=== PATIENT | male | born 1950 | race Caucasian/White ===

== ENCOUNTER 2022-07-06 16:13 | Emergency (ER) | payer MEDICARE, SELFPAY ==
--- NOTE | ~2022-07-06 | CT_ITS ---
Non-contrast Head CT History: Vertigo, dizziness Technique: Axial non-contrast imaging of the brain was performed. Dose reduction technique was used on this scan by utilizing automated exposure control and iterative reconstruction technique. The dose -length product (DLP) was 681.00 mGy-cm. Findings: There is no evidence of intracranial hemorrhage, mass lesion, or acute infarct. Brain par enchyma appears normal. The ventricles and subarachnoid spaces are normal in size. The calvarium ap pears normal. There is mild bilateral ethmoid sinus disease. The remaining visualized paranasal sinus es are clear. Impression: No intracranial abnormality seen. Mild ethmoid sinus disease. Reviewed, dictated and finalized at location . [employer] Impression: No intracranial abnormality seen. Mild ethmoid sinus disease.
[2022-07-06 16:58] VITALS: BP 122/70; PULSE 74; RESP 16; TEMP 36.9; O2SAT 97
--- NOTE | 2022-07-06 17:03 | ECG_ITS ---
Measurements Intervals [place] Rate: 107 P: 57 [place]: 173 QRS: 0 QRSD: 78 T: 46 QT: 365 QTc: 489 Interpretive Statements SINUS TACHYCARDIA VENTRICULAR TRIGEMINY ABNORMAL ECG NO PREVIOUS ECG AVAILABLE FOR COMPARISON Electronically Signed On 07-06-2022 20:16:26 HR OPERATIONS ADVISOR by Topher Davies D.O.
[2022-07-06 17:54] VITALS: BP 132/78; PULSE 71; RESP 16; O2SAT 97
[2022-07-06 22:00] VITALS: BP 128/78; PULSE 78; RESP 16; TEMP 36.9; O2SAT 95
--- NOTE | 2022-07-06 22:57 | PC.NURSE ---
Herminia, ED PA at bedside to assess pt.
--- NOTE | 2022-07-06 23:19 | ED.GENADULT ---
HPI - General Adult General Chief complaint: Recheck/Abnormal Lab/Rx Stated complaint: high blood pressure Time Seen by Provider: 07/06/22 22:33 Source: patient and family Mode of arrival: ambulatory Limitations: no limitations History of Present Illness HPI narrative: Patient is a 71-year-old male who presents to the ED with report of dizziness. Patient reports he woke up at 1am and felt fine. He then woke again at 3am with dizziness. He describes the dizziness as though he feels motion sick and unsteady. He states he had to hold onto things to avoid falling. He did not fall. He has never had similar sx's. He states the dizziness is worse with sitting upright or trying to move. If he lays still the dizziness is manageable. He did experience nausea and one episode of vomiting with the dizziness. He otherwise denies any vision changes, headache, abdominal pain, CP, SOB, weakness, slurred speech, aphasia, numbness. Related Data Home Medications Medication Instructions Recorded Confirmed metoprolol succinate 50 mg 50 mg PO DAILY 06/03/22 06/03/22 tablet,extended release 24 hr simvastatin 40 mg tablet 40 mg PO DAILY 06/03/22 06/03/22 Allergies Allergy/AdvReac Type Severity Reaction Status Date / Time No Known Allergies Allergy Unverified 06/03/22 10:47 Review of Systems Review of Systems: CONSTITUTIONAL: Denies fever, chills, or sweats. EYES: Denies visual changes. CARDIOVASCULAR: Denies chest pain. RESPIRATORY: Denies dyspnea. GASTROINTESTINAL: See HPI. NEUROLOGIC: See HPI. All systems reviewed & are unremarkable except as noted in HPI and below PMFSH Past Medical History Medical History HLD (hyperlipidemia) Hypertension Surgical History Surgical History (Updated 07/07/22 @ 00:02 by Herminia Bright PA-C) No pertinent past surgical history Family History Family History Father Cancer Mother Diabetes mellitus Sibling Alcoholism Cancer Depression Social History Social History Smoking status: Never smoker Alcohol intake: current Substance use: never Lack of Transportation: No Lack of Food: Never True Current Housing: I Have Housing Concerned About Future Housing: No Difficulty Paying Gas/Electric Bills: No Difficulty Paying for Meds: No Currently Unemployed: No Education: Bachelor's Degree Difficulty w/ Childcare or Family Care: No Exam Narrative: GENERAL: Well appearing, well-nourished, non-toxic, in no acute distress. HEAD: Normocephalic, atraumatic. EYES: PERRL/EOMI, conjunctivae clear bilaterally. Mild fatiguable nystagmus with left and right gaze. EARS: TMS clear, with good light reflex. No erythema or bulging. Some cerumen in R ear, but able to visualize TM. No impaction. THROAT: Pharynx clear, no exudate. MMs moist. NECK: Supple. No adenopathy, no masses. RESPIRATORY: Airway patent, respirations nonlabored. Clear to auscultation bilaterally, no rales, rhonchi, wheezing. CARDIOVASCULAR: Regular rate and rhythm without murmurs, rubs, or gallops. Peripheral pulses 2+ and equal bilaterally. ABDOMINAL: Soft, nontender, nondistended, no hepatosplenomegaly. Normoactive BS. MUSCULOSKELETAL: Moves all extremities. Strength/ROM intact without gross deformities. SKIN: Warm, dry, normal color. No rashes. NEURO: A&O X3. Speech clear. Follows commands. CN II-XII intact. Sensation grossly intact. No ataxic movements. Strength 5/5 in upper and lower extremities bilaterally. Bgmb-xw-wrxe and ektoqn-jc-czrn testing intact bilaterally. No pronator drift. Equal lab animal technologist strength bilaterally. Dizziness elicited with sitting upright in bed. PSYCHIATRIC: Appropriate mood and affect. Normal interaction. Course Vital Signs Vital signs: Vital Signs Temperature 98.4 F 07/06/22 16:58 Pulse Rate 74
[2022-07-07 00:07] LABS: Basophils Absolute Auto 0.1 K/mm3 (0.0-0.1); Basophils Percent Auto 0.7 % (0.2-1.2); Eosinophils Absolute Auto 0.1 K/mm3 (0-0.3); Eosinophils Percent Auto 1.1 % (0-4.4); Hematocrit 46.6 % (42.0-52.0); Hemoglobin 15.6 g/dL (14.0-18.0); Immature Granulocyte Absolute 0.02 K/mm3 (0.00-0.031); Immature Granulocyte Percent A 0.2 % (0-0.5); Lymphocytes Absolute Auto 1.94 K/mm3 (0.9-3.2); Lymphocytes Percent Auto 23.4 % (18.3-44.2); Mean Corpuscular HGB Conc 33.5 g/dl (32-36); Mean Corpuscular Hemoglobin 34.1 pg (26-34); Mean Platelet Volume 9.6 fl (7.4-10.4); Monocytes Absolute Auto 0.7 K/mm3 (0.1-0.6); Monocytes Percent Auto 8.6 % (2.6-8.5); Neutrophils Absolute Auto 5.5 K/mm3 (1.3-6.7); Platelet Count Result 151 k/mm3 (150-375); Red Blood Count 4.57 M/mm3 (4.6-6.20); Red Cell Distribution Width 12.5 % (11.5-14.5); White Blood Count 8.3 K/mm3 (4.5-10.0)
[2022-07-07] MEDS: SODIUM CHLORIDE 0.9% IV 1,000 ML 999 ML IV CONT (00:10)
[2022-07-07] MEDS: ONDANSETRON INJ 4 MG/2 ML VIAL IV PUSH (00:10)
[2022-07-07] MEDS: MECLIZINE HCL 25 MG TABLET PO (00:10)
[2022-07-07 00:13] LABS: INR 1.1; Prothrombin Time 13.9 Seconds (11.1-14.7)
[2022-07-07 00:14] LABS: Partial Thromboplastin Time 28.4 SECONDS (22.3-36.8)
[2022-07-07 00:26] LABS: Alanine Aminotransferase 32 U/L (6-50); Albumin Level 4.2 g/dL (3.5-5.1); Alkaline Phosphatase 62 U/L (38-126); Anion Gap 6 mmol/L (8-16); Aspartate Amino Transferase 49 U/L (17-59); Bilirubin,Total 1.2 mg/dL (0.2-1.3); Blood Urea Nitrogen 15 mg/dL (9-20); Calcium 9.3 mg/dL (8.4-10.2); Carbon Dioxide 26 mmol/L (22-30); Chloride 103 mmol/L (98-107); Estimated CRCL calculation 59 ml/min; Estimated Glomerular Filt Rate > 60; Glucose 114 mg/dL (65-110); Potassium 4.1 mmol/L (3.4-5.0); Sodium 135 mmol/L (137-145)
[2022-07-07 00:37] LABS: Troponin I < 0.012 ng/mL (0.000-0.034)
--- NOTE | 2022-07-07 01:11 | PC.NURSE ---
Patient ambulatory with provider out into the hallway and around the nurses station. Patient tolerated it well.
--- NOTE | 2022-07-07 01:24 | PC.NURSE ---
Patient here with c/o dizziness.
--- NOTE | 2022-07-07 01:41 | PC.NURSE ---
Patient refused orthostatic vital signs.
[2022-07-07 01:42] VITALS: PULSE 72; RESP 16; O2SAT 98
== END 2022-07-07 01:44 | disposition home or self-care (01) ==
PROVIDERS: Emergency Provider Physician Assistant; PCP Internal Medicine
DX: R42 Dizziness and giddiness (principal); E78.5 Hyperlipidemia, unspecified; I10 Essential (primary) hypertension; R00.0 Tachycardia, unspecified; R00.8 Other abnormalities of heart beat
CPT/HCPCS: 36415; 70450; 80053; 84484; 85025; 85610; 85730; 93005; 96361; 96374; 99284; A9270; J2405; J7030

== ENCOUNTER 2024-11-13 07:36 | Outpatient (CLI) | payer MEDICARE, SELFPAY ==
--- NOTE | ~2024-11-13 | MR_ITS ---
MRI of the brain Clinical History: Slurred speech Technique: Axial and sagittal T1-weighted images were acquired. These were followed by axial T2-weigh joshua, diffusion weighted, gradient, and FLAIR images. Findings: There is a 1.8 x 1.5 cm masslike lesion in the left frontal lobe in the subcortical white m atter region, hyperintense both T1-weighted and T2-weighted images, with minimal perilesional edema. Findings are most compatible with subacute hemorrhage/hematoma. No other significant signal abnormali ty seen in the brain parenchyma. Ventricles and subarachnoid spaces are mildly dilated. Orbits are unremarkable. There is mild bilater al maxillary sinus disease. There is bilateral ethmoid sinus disease. Remaining paranasal sinuses and mastoid air cells are clear. Major intracranial flow voids are intact. Sagittal midline structures are intact. IMPRESSION: 1.8 x 1.5 cm probable subacute hemorrhage/hematoma in the left frontal lobe in the subcortical white matter. There is minimal perilesional edema. Short-term follow-up exam recommended in one month. Foll ow-up postcontrast imaging also advised to better assess for underlying enhancing lesion, especially once the intrinsic T1 hyperintense hemorrhage has resolved/improved. Reviewed, dictated and finalized at location . IMPRESSION: 1.8 x 1.5 cm probable subacute hemorrhage/hematoma in the left frontal lobe in the subcortical white matter. There is minimal perilesional edema. Short-term f ollow-up exam recommended in one month. Follow-up postcontrast imaging also adv ised to better assess for underlying enhancing lesion, especially once the intr insic T1 hyperintense hemorrhage has resolved/improved.
== END 2024-11-13 07:37 | disposition home or self-care (01) ==
LOC: MICIMG 07:38
PROVIDERS: PCP Internal Medicine; Visit Provider Internal Medicine
DX: G93.6 Cerebral edema (principal)
CPT/HCPCS: 70551

== ENCOUNTER 2024-12-10 08:39 | Outpatient (CLI) | payer MEDICARE, SELFPAY ==
--- NOTE | ~2024-12-10 | MR_ITS ---
MRI of the brain Clinical History: Slurred speech, follow-up left cerebral lesion COMPARISON: 11/13/2024 Technique: Axial flair, T1-weighted, diffusion imaging was performed. Following intravenous administr ation of 19 cc MultiHance gadolinium, T1-weighted fat-sat imaging was performed in the axial, coronal , and sagittal planes. . Findings: Again identified is a 1.5 cm round lesion in the subcortical region of the left frontal lob e, with attention to T1 hyperintensity and avid T2 hyperintensity. Lesion is circumscribed, without p erilesional edema. No appreciable close contrast enhancement identified. Intrinsic T1 hyperintensity present. No other lesion identified in the remainder of the brain. IMPRESSION: No abnormal enhancement identified with the T1 hyperintense, T2 hyperintense lesion in the left front al lobe. This is again most compatible with subacute hemorrhage/hematoma. Follow-up exam in 3 months recommended to reassess. Reviewed, dictated and finalized at [facility]. IMPRESSION: No abnormal enhancement identified with the T1 hyperintense, T2 hyperintense le radha in the left frontal lobe. This is again most compatible with subacute hemo rrhage/hematoma. Follow-up exam in 3 months recommended to reassess.
--- OUTSIDE RECORDS SUMMARY | 2024-12-10 09:03 | XMS_ITS | Clinical Summary ---
Author Organization [facility] Address [address] [place] [address] Care Team Providers Care Rcis Name Role Phone Unavailable Primary Care Provider Unavailabl e Source Comments [facility],non-owned Affiliates and Associated Physician Practices is amultiple site organization consisting of ambulatory clinics and hospital sitesin [place], [place], [place] and [place]. This disclosure is being madepursuant to the Care Everywhere program and may not contain all information available regarding this patient. Last updated 18.[facility] Immunizations Immunization Administration Dates Next Due INFLUENZA VACCINE, HIGH-DOSE , QUADR. 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 Gender Identity Not on file Sexual Orientation Not on file Plan of Treatment Health Maintenance Due Date Last Done Comments COLOGUARD (AGES 45-75) - COL ON CA SCREENING 1949 COLON MONITORING 1949 COLONOSCOPY - COLON CA SCREENING 1949 CT COLONOGRAPHY - COLON CA SCREENING 1949 Colorectal Cancer Screening 1949 FIT - COLON CA SCREENING 1949 FLEX SIG - COLON CA SCREENING 1949 LIPID TESTING 1949 HEPATITIS C SCREENING 07/06/1967 DTAP/TDAP/TD VACCINES (1 - Tdap) 1968 PNEUMOCOCCAL VACCINE 50+ (1 of 1 - PCV) 1999 ZOSTER VACCINE (1 of 2) 1999 COVID-19 VACCINE (1 - 2023-2 5 season) 2024 DEPRESSION SCREENING 07/04/2024 Respiratory Syncytial Virus (RSV) Vaccine Pt: or over 60 yrs (1 - 1-dose 75+ series) 2024 INFLUENZA VACCINE (Season Ended) 2025 05/13/20 19 HEPATITIS B VACCINE Aged Out No longe r eligible based on patient's age to complete this topic HIB VACCINE Aged Out No longer eligi ble based on patient's age to complete this topic HPV VACCINE Aged Out No longer eligi ble based on patient's age to complete this topic MENINGOCOCCAL (Group B) VACC INE SHARED DECISION-MAKING Aged Out No longer eligibl e based on patient's age to complete this topic MENINGOCOCCAL GROUPS A/C/Y/W VACCINE Aged Out No longer eligible b ased on patient's age to complete this topic Insurance [employer]
--- OUTSIDE RECORDS SUMMARY | 2024-12-10 09:03 | XMS_ITS | Data Portability ---
Author Organization [place] - [facility], Main Office Address [address] [place] [address] Assessment Encounter Date Assessment Date Assessment LastModified by Organization Details LastModified Time 11/09/2022 11/09/2022 Continue current therapy he will see me back in 6 months blood work has been ordered Hypertension metoprolol. Dyslipidemia simvastatin spinal stenosis exam and symptoms stable [email or web address] Not available 12/12/2022 16:14:55 06/02/2023 06/02/2023 Medicines refilled follow-up 4 months [email or web address] Not available 07/01/2023 13:26:03 Plan of Treatment Reminders Order Date Submit Date Provider Last Modified By Organization Details Last Modified Time Details Appointments None recorded. Lab CBC w/ auto diff 2022 023 [email or web address] Not available 3 10:02:37 lipid panel, serum 2022 023 MARIO Not available 3 18:56:03 CMP, serum or plasma 2022 023 MARIO Not available 3 18:55:59 Referral None recorded. Procedures None recorded. Surgeries None recorded. Imaging None recorded. Medication Orders simvastatin 40 mg tablet 2022 023 [id number], [address] [place], [address], 3 17:58:57 metoprolol succinate ER 50 mg tablet,exte nded release 24 hr 2022 023 [email or web address] [id number] In [facility], [address] , [place], [address], 17:58:57 Patient TargetsNo targets recorded. Patient Instructions Encounter Date Encounter Id Patient Instructions Last Modified By Organization Details Last Modified Time 06/02/2023 [id number] dementia rating scale-2* [email or web address] Not available 06/02/2023 17:58:57 alcohol misuse* [email or web address] Not available 06/02/2023 17:58:57 depression screening* [email or web address] Not available 06/02/2023 17:58:57 multi-dimensiona l health assessment questionnaire* [email or web address] Not available 06/02/2023 17:58:57 Personalized Hea lth Plan and Screening Recommendations Advance Directives - Do you have one? Yes Advance Directives - Do we have your advance directive on file in your health record? Primary Prevention/Interven tion (prevents or decreases the chance of common diseases from occurring) Smoking Risk: Non Smoker Alcohol Misuse Screening: Negative Weight: Overweight try to lose 10% of your body weight Physical activity: Appropriate physical activity Nutrition: Average Fall Risk (screened today): Low Vaccines Pneumococcal: No further needed Influenza: Ordered Recommended today Recommended today, but you have declined Your next one in the fall of this year Your next one in the fall of this 2023 Chronic Disease Risks Stroke: Intermediate Risk Active diagnosis, Continue current treatment plan Heart Attack: Intermediate Risk Active diagnosis, Continue current treatment plan Clogging of the Arteries: Intermediate Risk Active diagnosis, Continue current treatment plan Diabetes: Low Risk Active diagnosis, Continue current treatment plan Secondary Prevention/Interven tion (detects treatable diseases before they may cause symptoms, disability, or ) Colon Cancer Screening: Colonoscopy In: Ordered Recomme nded Recommended today, but you have declined No screening necessary next 2026 Date Screening Last Performed: Eye Disease Screening: No Eye exam necessary Dementia Risk: Depression Screening: Negative Active diagnosis, Continue current treatment plan Prostate Cancer Screening: Your next PSA in: No PSA screening necessary Your next PSA in: 2023 your next digital rectal exam in: No digital rectal exam screening necessary your next digital rectal exam in: 2023 [email or web address] Not available 06/03/2023 19:48:26 Reason for Referral None Reported. Results Created Date Observation Date Name Description Value Unit Range Abnormal Flag Note LastModifiedBy Organization Detail LastModifiedTime 12/02/19 22 12/02/2021 FOLAT E, SERUM /PLAS MA folate 6.29 NG/mL 2.76-2 0.0 Not Available [facility] (Lab) [address] [place], [address], 12/02/2021 18:18:22 12/02/19 22 12/02/2021 VITAM IN B12 (AUTUMN HILARIA ) vb12 349 pg/mL 239-93 1 Not Available [facility] (Lab) [address] [place], [address], 12/02/2021 18:18:20 12/02/19 22 12/02/2021 RPR SCREE N RPR non-re active nonrea ctive Not Available [facility] (Lab) [address] [place], [address], 12/02/2021 13:50:33 12/02/19 22 12/01/2021 PSA SCREE N PSA medicare screen 0.76 NG/mL 0.00-4 .00 Not Available [facility] (Lab) [address] [place], [address], 12/01/2021 20:00:13 12/02/19 22 12/01/2021 TSH thyroid-stim ulating hormone 5.510 uIU/m L 0.465- 4.680 high Not Available [facility] (Lab) [address] [place], [address], 12/01/2021 20:00:11 12/02/19 22 12/01/2021 T3 FREE free T3 3.1 pg/mL 2.77-5 .27 Not Available [facility] (Lab) [address] [place], [address], 12/01/2021 19:44:12 12/02/19 22 12/01/2021 T4 FREE free T4 1.29 NG/dL 0.78-2 .19 Not Available [facility] (Lab) [address] [place], [address], 12/01/2021 19:44:11 12/02/19 22 12/01/2021 LIPID PANEL cholesterol 169 mg/dL 140-19 9 NIH ANNE NSUS RECOM MENDA TION FOR MAHENDRA STERO L: ADULT CHILD LOW RISK: <200 <170 BORDE RLINE : <200- 239 ----- HIGH RISK: >240 >200 Not Available [facility] (Lab) [address] [place], [address], 12/01/2021 19:33:25 12/02/19 22 12/01/2021 LIPID PANEL triglyceride s 91 mg/dL 0-150 NIH ANNE NSUS REPOR T RECOM MENDA TION FOR TRIGL YCERI RAQUEL: ADULT CHILD LOW RISK: <150 ----- BODER LINE: 150-1 99 ----- HIGH RISK: >200 ----- Not Available [facility] (Lab) [address] [place], [address], 12/01/2021 19:33:25 12/02/19 22 12/01/2021 LIPID PANEL HDL cholesterol 67 mg/dL 40- Not Available [facility] (Lab) [address] [place], [address], 12/01/2021 19:33:25 12/02/19 22 12/01/2021 LIPID PANEL LDL cholesterol, calculated 84 mg/dL 0-130 NIH ANNE NSUS REPOR T RECOM MENDA TIONS FOR LDL: ADULT CHILD LOW RISK <130 <110 (OPTI MAL LDL) <100 ----- BORDE RLINE : 130-1 59 ----- HIGH RISK: >160 >130 A TRIGL YCERI DE RESUL T >400 INVAL IDATE S THE CALCU LATIO N FOR LDL FRACT IONAT ION - THE LDL RESUL T WILL NOT BE REPOR GUALBERTO. Not Available [facility] (Lab) [address] [place], [address], 12/01/2021 19:33:25 12/02/19 22 12/01/2021 COMPR EHENS SHERRY METAB OLIC PANEL sodium 134 mmol/ L 137-14 5 low Not Available [facility] (Lab) [address] [place], [address], 12/01/2021 19:33:20 12/02/19 22 12/01/2021 COMPR EHENS SHERRY METAB OLIC PANEL potassium 4.6 mmol/ L 3.5-5. 1 Not Available [facility] (Lab) [address] [place], [address], 12/01/2021 19:33:20 12/02/19 22 12/01/2021 COMPR EHENS SHERRY METAB OLIC PANEL chloride 98 mmol/ L 98-107 Not Available [facility] (Lab) [address] [place], [address], 12/01/2021 19:33:20 12/02/19 22 12/01/2021 COMPR EHENS SHERRY METAB OLIC PANEL carbon dioxide 25 mmol/ L 22-30 Not Available [facility] (Lab) [address] [place], [address], 12/01/2021 19:33:20 12/02/19 22 12/01/2021 COMPR EHENS SHERRY METAB OLIC PANEL anion gap 15.6 mmol/ L 14-22 Not Available [facility] (Lab) [address] [place], [address], 12/01/2021 19:33:20 12/02/19 22 12/01/2021 COMPR EHENS SHERRY METAB OLIC PANEL glucose 103 mg/dL 70-99 high Not Available [facility] (Lab) [address] [place], [address], 12/01/2021 19:33:20 12/02/19 22 12/01/2021 COMPR EHENS SHERRY METAB OLIC PANEL BUN 12 mg/dL 8-19 Not Available [facility] (Lab) [address] [place], [address], 12/01/2021 19:33:20 12/02/19 22 12/01/2021 COMPR EHENS SHERRY METAB OLIC PANEL creatinine 1.10 mg/dL 0.66-1 .25 Not Available [facility] (Lab) [address] [place], [address], 12/01/2021 19:33:20 12/02/19 22 12/01/2021 COMPR EHENS SHERRY METAB OLIC PANEL GFR >60 Refer ence Range : [place] ge GFR Healt hy Adult : >60 mL/mi n/1.7 3 m2 Chron ic Kidne y Disea se: 15-60 mL/mi n/1.7 3 m2 Kidne y Failu re: <15/m L/min /1.73 m2 www.n iddk. nih.g ov The MDRD study equat ion has not been valid ated in child massimo <18 years of age; pregn ant women ; the elder ly >85 years of age; or in some racia l or ethni c subgr oups, such as Hispa nics. Outsi de the valid ated hilton eters , estim ated GFR is less accur ate, requi ring clini john judgm ent on a case- by-ca se basis . Clini john inter preta tion for other races and ages must be made by the clini nyla. The MDRD study equat ion has not been valid ated for the evalu ation of serum creat inine relat ed to nutri tania l statu s or medic ation usage . For perso ns <18 years of age, a pedia tric GFR calcu lator is avail able on the F websi te: https ://susu w.linda flor.o rg/pr ofess ional s/kdo qi/gf r_cal culat or Not Available [facility] (Lab) [address] [place], [address], 12/01/2021 19:33:20 12/02/19 22 12/01/2021 COMPR EHENS SHERRY METAB OLIC PANEL alkaline phosphatase 117 U/L 38-126 Not Available [facility] (Lab) [address] [facility] [place], [address], 12/01/2021 19:33:20 12/02/19 22 12/01/2021 COMPR EHENS SHERRY METAB OLIC PANEL alanine aminotransfe rase 137 U/L 0-50 high Not Available [facility] (Lab) [address] [place], [address], 12/01/2021 19:33:20 12/02/19 22 12/01/2021 COMPR EHENS SHERRY METAB OLIC PANEL aspartate aminotransfe rase 221 U/L 15-46 high Not Available [facility] (Lab) [address] [place], [address], 12/01/2021 19:33:20 12/02/19 22 12/01/2021 COMPR EHENS SHERRY METAB OLIC PANEL bilirubin, total 0.70 mg/dL 0.20-1 .30 Not Available [facility] (Lab) [address] [place], [address], 12/01/2021 19:33:20 12/02/19 22 12/01/2021 COMPR EHENS SHERRY METAB OLIC PANEL calcium 9.2 mg/dL 8.4-10 .2 Not Available [facility] (Lab) [address] [place], [address], 12/01/2021 19:33:20 12/02/19 22 12/01/2021 COMPR EHENS SHERRY METAB OLIC PANEL total protein 7.7 g/dL 6.3-8. 2 Not Available [facility] (Lab) [address] [place], [address], 12/01/2021 19:33:20 12/02/19 22 12/01/2021 COMPR EHENS SHERRY METAB OLIC PANEL albumin 4.3 g/dL 3.0-4. 4 Not Available [facility] (Lab) [address] [place], [address], 12/01/2021 19:33:20 12/02/19 22 12/01/2021 COMPR EHENS SHERRY METAB OLIC PANEL globulin 3.4 g/dL 2.6-4. 2 Not Available [facility] (Lab) [address] [place], [address], 12/01/2021 19:33:20 12/02/19 22 12/01/2021 COMPR EHENS SHERRY METAB OLIC PANEL A/G ratio 1.3 ratio 1.0-2. 0 Not Available [facility] (Lab) [address] [place], [address], 12/01/2021 19:33:20 12/02/19 22 12/01/2021 URINA LYSIS /IRIS W/O MICRO color light- yellow Not Available [facility] (Lab) [address] [place], [address], 12/01/2021 19:23:04 12/02/19 22 12/01/2021 URINA LYSIS /IRIS W/O MICRO appear clear Not Available [facility] (Lab) [address] [place], [address], 12/01/2021 19:23:04 12/02/19 22 12/01/2021 URINA LYSIS /IRIS W/O MICRO specific gravity 1.011 1.001- 1.030 Not Available [facility] (Lab) [address] [place], [address], 12/01/2021 19:23:04 12/02/19 22 12/01/2021 URINA LYSIS /IRIS W/O MICRO pH 5.5 pH_un its 5.0-9. 0 Not Available [facility] (Lab) [address] [place], [address], 12/01/2021 19:23:04 12/02/19 22 12/01/2021 URINA LYSIS /IRIS W/O MICRO leukocytes negati ve melania/u L negati ve- Not Available [facility] (Lab) [address] [place], [address], 12/01/2021 19:23:04 12/02/19 22 12/01/2021 URINA LYSIS /IRIS W/O MICRO nitrite negati ve negati ve- Not Available [facility] (Lab) [address] [place], [address], 12/01/2021 19:23:04 12/02/19 22 12/01/2021 URINA LYSIS /IRIS W/O MICRO protein 10 mg/dL negati ve- abnormal Not Available [facility] (Lab) [address] [place], [address], 12/01/2021 19:23:04 12/02/19 22 12/01/2021 URINA LYSIS /IRIS W/O MICRO glucose normal mg/dL normal - Not Available [facility] (Lab) [address] [place], [address], 12/01/2021 19:23:04 12/02/19 22 12/01/2021 URINA LYSIS /IRIS W/O MICRO ketones negati ve mg/dL negati ve- Not Available [facility] (Lab) [address] [place], [address], 12/01/2021 19:23:04 12/02/19 22 12/01/2021 URINA LYSIS /IRIS W/O MICRO urobilinogen normal mg/dL normal - Not Available [facility] (Lab) [address] [place], [address], 12/01/2021 19:23:04 12/02/19 22 12/01/2021 URINA LYSIS /IRIS W/O MICRO bilirubin negati ve mg/dL negati ve- Not Available [facility] (Lab) [address] [place], [address], 12/01/2021 19:23:04 12/02/19 22 12/01/2021 URINA LYSIS /IRIS W/O MICRO blood negati ve mg/dL negati ve- abnormal Not Available [facility] (Lab) [address] [place], [address], 12/01/2021 19:23:04 12/02/19 22 12/01/2021 CBC/C OMPLE TE BLD COUNT W/DIF F white blood cells 8.7 x10'3 /uL 4.2-10 .8 Not Available [facility] (Lab) [address] [place], [address], 12/01/2021 19:22:28 12/02/19 22 12/01/2021 CBC/C OMPLE TE BLD COUNT W/DIF F red blood cells 3.86 x10'6 /uL 4.10-5 .80 low Not Available [facility] (Lab) [address] [facility] [place], [address], 12/01/2021 19:22:28 12/02/19 22 12/01/2021 CBC/C OMPLE TE BLD COUNT W/DIF F hemoglobin 14.4 g/dL 13.2-1 7.0 Not Available [facility] (Lab) [address] [place], [address], 12/01/2021 19:22:28 12/02/19 22 12/01/2021 CBC/C OMPLE TE BLD COUNT W/DIF F hematocrit 42.5 % 39.3-5 0.0 Not Available [facility] (Lab) [address] [place], [address], 12/01/2021 19:22:28 12/02/19 22 12/01/2021 CBC/C OMPLE TE BLD COUNT W/DIF F mean red cell volume 110.1 fL 80.0-9 7.0 high Not Available [facility] (Lab) [address] [place], [address], 12/01/2021 19:22:28 12/02/19 22 12/01/2021 CBC/C OMPLE TE BLD COUNT W/DIF F mean red cell hemoglobin 37.3 pg 27.0-3 3.0 high Not Available [facility] (Lab) [address] [place], [address], 12/01/2021 19:22:28 12/02/19 22 12/01/2021 CBC/C OMPLE TE BLD COUNT W/DIF F mean RBC HGB concentratio n 33.9 g/dL 31.0-3 6.0 Not Available [facility] (Lab) [address] [place], [address], 12/01/2021 19:22:28 12/02/19 22 12/01/2021 CBC/C OMPLE TE BLD COUNT W/DIF F red cell distribution width 12.7 % 11.8-1 5.5 Not Available [facility] (Lab) [address] [facility] [place], [address], 12/01/2021 19:22:28 12/02/19 22 12/01/2021 CBC/C OMPLE TE BLD COUNT W/DIF F platelets 170 x10'3 /uL 150-40 0 Not Available [facility] (Lab) [address] [place], [address], 12/01/2021 19:22:28 12/02/19 22 12/01/2021 CBC/C OMPLE TE BLD COUNT W/DIF F mean platelet volume 9.6 fL 9.0-12 .4 Not Available [facility] (Lab) [address] [place], [address], 12/01/2021 19:22:28 12/02/19 22 12/01/2021 CBC/C OMPLE TE BLD COUNT W/DIF F neutrophils 72.3 % 39.0-7 2.0 high Not Available [facility] (Lab) [address] [place], [address], 12/01/2021 19:22:28 12/02/19 22 12/01/2021 CBC/C OMPLE TE BLD COUNT W/DIF F lymphocytes 17.4 % 16.0-4 7.0 Not Available [facility] (Lab) [address] [place], [address], 12/01/2021 19:22:28 12/02/19 22 12/01/2021 CBC/C OMPLE TE BLD COUNT W/DIF F monocytes 8.7 % 5.0-12 .0 Not Available [facility] (Lab) [address] [place], [address], 12/01/2021 19:22:28 12/02/19 22 12/01/2021 CBC/C OMPLE TE BLD COUNT W/DIF F eosinophils 0.8 % 1.0-7. 0 low Not Available [facility] (Lab) [address] [place], [address], 12/01/2021 19:22:28 12/02/19 22 12/01/2021 CBC/C OMPLE TE BLD COUNT W/DIF F basophils 0.5 % 0.0-2. 0 Not Available [facility] (Lab) [address] [place], [address], 12/01/2021 19:22:28 12/02/19 22 12/01/2021 CBC/C OMPLE TE BLD COUNT W/DIF F immature granulocytes 0.3 % 0.00-0 .50 Not Available [facility] (Lab) [address] [place], [address], 12/01/2021 19:22:28 12/02/19 22 12/01/2021 CBC/C OMPLE TE BLD COUNT W/DIF F neutrophils, absolute count 6.28 x10'3 /uL 1.5-8. 0 Not Available [facility] (Lab) [address] [place], [address], 12/01/2021 19:22:28 12/02/19 22 12/01/2021 CBC/C OMPLE TE BLD COUNT W/DIF F lymphocytes, absolute count 1.51 x10'3 /uL 1.07-3 .43 Not Available [facility] (Lab) [address] [place], [address], 12/01/2021 19:22:28 12/02/19 22 12/01/2021 CBC/C OMPLE TE BLD COUNT W/DIF F monocytes, absolute count 0.76 x10'3 /uL 0.29-0 .99 Not Available [facility] (Lab) [address] [place], [address], 12/01/2021 19:22:28 12/02/19 22 12/01/2021 CBC/C OMPLE TE BLD COUNT W/DIF F eosinophils, absolute count 0.07 x10'3 /uL 0.02-0 .53 Not Available [facility] (Lab) [address] [place], [address], 12/01/2021 19:22:28 12/02/19 22 12/01/2021 CBC/C OMPLE TE BLD COUNT W/DIF F basophils, absolute count 0.04 x10'3 /uL 0.01-0 .08 Not Available [facility] (Lab) [address] [place], [address], 12/01/2021 19:22:28 12/02/19 22 12/01/2021 CBC/C OMPLE TE BLD COUNT W/DIF F immature granulocytes ,absolute 0.03 x10'3 /uL 0.00-0 .05 Not Available [facility] (Lab) [address] [place], [address], 12/01/2021 19:22:28 12/02/19 22 12/01/2021 CBC/C OMPLE TE BLD COUNT W/DIF F nucleated red blood cells 0.0 % -0 Not Available [facility] (Lab) [address] [place], [address], 12/01/2021 19:22:28 12/02/19 22 12/01/2021 CBC/C OMPLE TE BLD COUNT W/DIF F NRBC# 0.00 x10'3 /uL Not Available [facility] (Lab) [address] [place], [address], 12/01/2021 19:22:28 02/02/20 22 02/01/2022 TSH thyroid-stim ulating hormone 3.020 uIU/m L 0.465- 4.680 Not Available [facility] (Lab) [address] [place], [address], 02/01/2022 13:37:10 02/02/20 22 02/01/2022 T3 FREE free T3 2.6 pg/mL 2.77-5 .27 low Not Available [facility] (Lab) [address] [place], [address], 02/01/2022 13:22:41 02/02/20 22 02/01/2022 T4 FREE free T4 1.02 NG/dL 0.78-2 .19 Not Available [facility] (Lab) [address] [place], [address], 02/01/2022 13:22:33 02/02/20 22 02/01/2022 COMPR EHENS SHERRY METAB OLIC PANEL sodium 140 mmol/ L 137-14 5 Not Available [facility] (Lab) [address] [place], [address], 02/01/2022 13:18:21 02/02/20 22 02/01/2022 COMPR EHENS SHERRY METAB OLIC PANEL potassium 4.5 mmol/ L 3.5-5. 1 Not Available [facility] (Lab) [address] [place], [address], 02/01/2022 13:18:21 02/02/20 22 02/01/2022 COMPR EHENS SHERRY METAB OLIC PANEL chloride 104 mmol/ L 98-107 Not Available [facility] (Lab) [address] [place], [address], 02/01/2022 13:18:21 02/02/20 22 02/01/2022 COMPR EHENS SHERRY METAB OLIC PANEL carbon dioxide 22 mmol/ L 22-30 Not Available [facility] (Lab) [address] [facility] [place], [address], 02/01/2022 13:18:21 02/02/20 22 02/01/2022 COMPR EHENS SHERRY METAB OLIC PANEL anion gap 18.5 mmol/ L 14-22 Not Available [facility] (Lab) [address] [place], [address], 02/01/2022 13:18:21 02/02/20 22 02/01/2022 COMPR EHENS SHERRY METAB OLIC PANEL glucose 115 mg/dL 70-99 high Not Available [facility] (Lab) [address] [place], [address], 02/01/2022 13:18:21 02/02/20 22 02/01/2022 COMPR EHENS SHERRY METAB OLIC PANEL BUN 8 mg/dL 8-19 Not Available [facility] (Lab) [address] [place], [address], 02/01/2022 13:18:21 02/02/20 22 02/01/2022 COMPR EHENS SHERRY METAB OLIC PANEL creatinine 1.06 mg/dL 0.66-1 .25 Not Available [facility] (Lab) [address] [place], [address], 02/01/2022 13:18:21 02/02/20 22 02/01/2022 COMPR EHENS SHERRY METAB OLIC PANEL GFR >60 Refer ence Range : [place] ge GFR Healt hy Adult : >60 mL/mi n/1.7 3 m2 Chron ic Kidne y Disea se: 15-60 mL/mi n/1.7 3 m2 Kidne y Failu re: <15/m L/min /1.73 m2 www.n iddk. nih.g ov The MDRD study equat ion has not been valid ated in child massimo <18 years of age; pregn ant women ; the elder ly >85 years of age; or in some racia l or ethni c subgr oups, such as Hispa nics. Outsi de the valid ated hilton eters , estim ated GFR is less accur ate, requi ring clini john judgm ent on a case- by-ca se basis . Clini john inter preta tion for other races and ages must be made by the clini nyla. The MDRD study equat ion has not been valid ated for the evalu ation of serum creat inine relat ed to nutri tania l statu s or medic ation usage . For perso ns <18 years of age, a pedia tric GFR calcu lator is avail able on the [facility] websi te: https ://susu w.linda sweeneyy.o mike/pr stephanyess ional s/kdo qi/gf r_cal culat or Not Available [facility] (Lab) [address] [place], [address], 02/01/2022 13:18:21 02/02/20 22 02/01/2022 COMPR EHENS SHERRY METAB OLIC PANEL alkaline phosphatase 77 U/L 38-126 Not Available [facility] (Lab) [address] [place], [address], 02/01/2022 13:18:21 02/02/20 22 02/01/2022 COMPR EHENS SHERRY METAB OLIC PANEL alanine aminotransfe rase 66 U/L 0-50 high Not Available [facility] (Lab) [address] [place], [address], 02/01/2022 13:18:21 02/02/20 22 02/01/2022 COMPR EHENS SHERRY METAB OLIC PANEL aspartate aminotransfe rase 90 U/L 15-46 high Not Available [facility] (Lab) [address] [place], [address], 02/01/2022 13:18:21 02/02/20 22 02/01/2022 COMPR EHENS SHERRY METAB OLIC PANEL bilirubin, total 0.70 mg/dL 0.20-1 .30 Not Available [facility] (Lab) [address] [place], [address], 02/01/2022 13:18:21 02/02/20 22 02/01/2022 COMPR EHENS SHERRY METAB OLIC PANEL calcium 9.3 mg/dL 8.4-10 .2 Not Available [facility] (Lab) [address] [place], [address], 02/01/2022 13:18:21 02/02/20 22 02/01/2022 COMPR EHENS SHERRY METAB OLIC PANEL total protein 7.4 g/dL 6.3-8. 2 Not Available [facility] (Lab) [address] [place], [address], 02/01/2022 13:18:21 02/02/20 22 02/01/2022 COMPR EHENS SHERRY METAB OLIC PANEL albumin 4.1 g/dL 3.0-4. 4 Not Available [facility] (Lab) [address] [place], [address], 02/01/2022 13:18:21 02/02/20 22 02/01/2022 COMPR EHENS SHERRY METAB OLIC PANEL globulin 3.3 g/dL 2.6-4. 2 Not Available [facility] (Lab) [address] [place], [address], 02/01/2022 13:18:21 02/02/20 22 02/01/2022 COMPR EHENS SHERRY METAB OLIC PANEL A/G ratio 1.2 ratio 1.0-2. 0 Not Available [facility] (Lab) [address] [place], [address], 02/01/2022 13:18:21 02/02/20 22 02/01/2022 LIPID PANEL cholesterol 247 mg/dL 140-19 9 high NIH ANNE NSUS RECOM MENDA TION FOR MAHENDRA STERO L: ADULT CHILD LOW RISK: <200 <170 BORDE RLINE : <200- 239 ----- HIGH RISK: >240 >200 Not Available [facility] (Lab) [address] [place], [address], 02/01/2022 13:18:16 02/02/20 22 02/01/2022 LIPID PANEL triglyceride s 124 mg/dL 0-150 NIH ANNE NSUS REPOR T RECOM MENDA TION FOR TRIGL YCERI RAQUEL: ADULT CHILD LOW RISK: <150 ----- BODER LINE: 150-1 99 ----- HIGH RISK: >200 ----- Not Available [facility] (Lab) [address] [place], [address], 02/01/2022 13:18:16 02/02/20 22 02/01/2022 LIPID PANEL HDL cholesterol 53 mg/dL 40- Not Available [facility] (Lab) [address] [place], [address], 02/01/2022 13:18:16 02/02/20 22 02/01/2022 LIPID PANEL LDL cholesterol, calculated 169 mg/dL 0-130 high [facility] ANNE NSUS REPOR T RECOM MENDA TIONS FOR LDL: ADULT CHILD LOW RISK <130 <110 (OPTI MAL LDL) <100 ----- BORDE RLINE : 130-1 59 ----- HIGH RISK: >160 >130 A TRIGL YCERI DE RESUL T >400 INVAL IDATE S THE CALCU LATIO N FOR LDL FRACT IONAT ION - THE LDL RESUL T WILL NOT BE REPOR GUALBERTO. Not Available [facility] (Lab) [address] [place], [address], 02/01/2022 13:18:16 11/10/19 23 11/09/2022 CBC W/O DIFFE RENTI AL white blood cells 8.2 x10'3 /uL 4.2-10 .8 Not Available [facility] (Lab) [address] [place], [address], 11/09/2022 18:38:49 11/10/1911/09/2022 CBC W/O DIFFE RENTI AL red blood cells 5.10 x10'6 /uL 4.10-5 .80 Not Available [facility] (Lab) [address] [place], [address], 11/09/2022 18:38:49 11/10/19 23 11/09/2022 CBC W/O DIFFE RENTI AL hemoglobin 15.7 g/dL 13.2-1 7.0 Not Available [facility] (Lab) [address] [place], [address], 11/09/2022 18:38:49 11/10/1911/09/2022 CBC W/O DIFFE RENTI AL hematocrit 48.2 % 39.3-5 0.0 Not Available [facility] (Lab) [address] [place], [address], 11/09/2022 18:38:49 11/10/1911/09/2022 CBC W/O DIFFE RENTI AL mean red cell volume 94.5 fL 80.0-9 7.0 Not Available [facility] (Lab) [address] [place], [address], 11/09/2022 18:38:49 11/10/19 23 11/09/2022 CBC W/O DIFFE RENTI AL mean red cell hemoglobin 30.8 pg 27.0-3 3.0 Not Available [facility] (Lab) [address] [place], [address], 11/09/2022 18:38:49 11/10/19 23 11/09/2022 CBC W/O DIFFE RENTI AL mean RBC HGB concentratio n 32.6 g/dL 31.0-3 6.0 Not Available [facility] (Lab) [address] [place], [address], 11/09/2022 18:38:49 11/10/19 23 11/09/2022 CBC W/O DIFFE RENTI AL red cell distribution width 13.5 % 11.8-1 5.5 Not Available [facility] (Lab) [address] [place], [address], 11/09/2022 18:38:49 11/10/19 23 11/09/2022 CBC W/O DIFFE RENTI AL platelets 147 x10'3 /uL 150-40 0 low Not Available [facility] (Lab) [address] [place], [address], 11/09/2022 18:38:49 11/10/19 23 11/09/2022 CBC W/O DIFFE RENTI AL mean platelet volume 10.2 fL 9.0-12 .4 Not Available [facility] (Lab) [address] [place], [address], 11/09/2022 18:38:49 11/10/19 23 11/09/2022 COMPR EHENS SHERRY METAB OLIC PANEL sodium 140 mmol/ L 137-14 5 Not Available [facility] (Lab) [address] [place], [address], 11/09/2022 18:55:58 11/10/19 23 11/09/2022 COMPR EHENS SHERRY METAB OLIC PANEL potassium 4.6 mmol/ L 3.5-5. 1 Not Available [facility] (Lab) [address] [place], [address], 11/09/2022 18:55:58 11/10/1911/09/2022 COMPR EHENS SHERRY METAB OLIC PANEL chloride 104 mmol/ L 98-107 Not Available [facility] (Lab) [address] [place], [address], 11/09/2022 18:55:58 11/10/19 23 11/09/2022 COMPR EHENS SHERRY METAB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 Ever Been Counseled For Unhealthy Alcohol Use? No [email or web address] Information not available 11/09/2022 Do You Have Any Pets? No MIGRATION.0301 339595 Information not available 09/01/2022 What Is Your Relationship Status? MIGRATION.0301 117197 Information not available 09/01/2022 Do You Use Your Seat Belt Or Car Seat Routinely? Yes MIGRATION.0301 059360 Information not available 09/01/2022 Do You Have Smoke And Carbon Monoxide Detectors In Your Home? Yes MIGRATION.0301 717164 Information not available 09/01/2022 Are You Passively Exposed To Smoke? No MIGRATION.0301 943591 Information not available 09/01/2022 Are There Any Smokers In Your House? No MIGRATION.0301 809606 Information not available 09/01/2022 How Much Tobacco Do You Smoke? No MIGRATION.0301 998833 Information not available 09/01/2022 Do You Use Sunscreen Routinely? Yes MIGRATION.0301 481781 Information not available 09/01/2022 Have You Recently Traveled Abroad? No MIGRATION.0301 307638 Information not available 09/01/2022 Do You Have Difficulty Walking Or Climbing Stairs? No MIGRATION.0301 743529 Information not available 09/01/2022 Do You Have Any Dietary Restrictions? No MIGRATION.0301 546475 Information not available 09/01/2022 Sex: Male Functional Status Question Answer Note LastModified by Organizat ion Details LastModified Time Do you use any illicit or recreational drugs? No MIGRATION.81615 37272 Information not available 09/01/2022 Do you or have you ever used any other forms of tobacco or nicotine? No [email or web address] Information not available 11/09/2022 What is your level of alcohol consumption? Moderate MIGRATION.53377 24420 Information not available 09/01/2022 Do you or have you ever used smokeless tobacco? Never used smokeless tobacco MIGRATION.33774 02006 Information not available 09/01/2022 Do you have transportation difficulties? No MIGRATION.26916 87566 Information not available 09/01/2022 Are you able to walk? YESWOREST MIGRATION.82883 37738 Information not available 09/01/2022 Do you have difficulty doing errands alone? Yes MIGRATION.45473 93188 Information not available 09/01/2022 Are you able to care for yourself? 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 No MIGRATION.12324 78054 Information not available 09/01/2022 Do you or have you ever used e-cigarettes or vape? Never used electronic cigarettes MIGRATION.07493 25575 Information not available 09/01/2022 What is your exercise level? Moderate MIGRATION.17880 23918 Information not available 09/01/2022 Mental Status Question Answer Note LastModified by Organizat ion Details LastModified Time Do you feel stressed (tense, restless, nervous, or anxious, or unable to sleep at night)? [id number] MIGRATION.34193813 26 Information not available 09/01/2022 Do you have difficulty concentrating, remembering or making decisions? No MIGRATION.39162446 26 Information not available 09/01/2022 Family History Relationship Description Onset Age of this Age Resolved Age Notes LastModified by Organization Details LastModified Time Mother Diabetes mellitus MIGRATION.346 [id number] Not available 09/01/2022 04:45:17 Father Hypertensive disorder MIGRATION.204 [id number] Not available 09/01/2022 04:45:17 Father Leukemia MIGRATION.938 8750110 Not available 09/01/2022 04:45:17 Medical History Condition Response NERVE DISEASE N BLINDNESS N RHEUMATIC FEVER N KIDNEY STONES N BLADDER PROBLEMS N MRSA N OTHER # 1 Y POLIO N LUNG DISEASE/DISORDER N COPD N RADIATION / CHEMOTHERAPY N Other # 2 N BLOOD DISEASES N EAR OR HEARING PROBLEMS N MUMPS N BOWEL PROBLEMS N DEPRESSION (INCLUDING POST ) N STROKE/TIA N ULCERS N BENIGN PROSTATIC HYPERPLASIA N MEASLES N MYOCARDIAL INFARCTION N OBESITY N GERD/NAUSEA N ANEURYSM N URINARY/BLADDER/KIDNEY PROBLEMS N CORONARY ARTERY DISEASE (CAD) N ADDICTION CONCERNS N ENDOMETRIOSIS N Impotence N USE OF BLOOD THINNERS N SKIN PROBLEMS N GASTROINTESTINAL DISORDER N PERIPHERAL VASCULAR DISEASE N MUSCLE,JOINT OR BONE PROBLEMS N GASTROINTESTINAL BLEEDING N BLOOD CLOTS N ASTHMA N CATARACTS N ERECTILE DYSFUNCTION N VARICOSITIES N GI PROBLEMS N Low Testosterone N INFERTILITY N AIDS/HIV N CHEMOTHERAPY / RADIATION N LIVER DISEASE Y MALE HYPOGONADISM N HYPERTENSION Y Deficiency N TOURETTE'S N ANXIETY DISORDER N BLOOD TRANSFUSION N ANEMIA/BLOOD DISORDER N CHRONIC EAR INFECTIONS N BRONCHITIS N TUBERCULOSIS N GLAUCOMA N FOOT PROBLEM N DIVERTICULITIS N SLEEP APNEA N CHICKENPOX N INFECTIOUS DISEASE N HEART ARRHYTHMIA N PROSTATE N INSOMNIA N HIGH CHOLESTEROL / HYPERLIPIDEMIA Y HYPERTHYROIDISM N EYE PROBLEMS N EDEMA N CHRONIC PAIN SYNDROME N HYPOTHYROIDISM N CAROTID BLOCKAGE N CONSTIPATION N BACK / NECK PROBLEMS N HAVE YOU BEEN HOSPITALIZED OR SEEN IN [facility] IN THE PAST YEAR ? N ATHEROSCLEROSIS N BREAST PROBLEMS N DIALYSIS N ECZEMA N OSTEOPOROSIS N ARTHRITIS N APPENDICITIS N DIABETES, TYPE N BAD TEETH N ENT N HEARTBURN / REFLUX N AUTISM SPECTRUM DISORDER (ASD) N HEPATITIS / LIVER DISEASE N GOUT N SLEEP DISORDER N ALZHEIMER'S DISEASE N Brain Problems N HERPES N DEMENTIA N HEADACHES/MIGRAINES N SEIZURES/EPILEPSY N VASCULAR DISEASE N PACEMAKER N Blood Disorder N DIZZINESS N HEART DISEASE/HEART PROBLEMS N KIDNEY DISEASE N MULTIPLE SCLEROSIS N CARDIAC ARRHYTHMIA N CANCER: SPECIFY N ATRIAL FIBRILLATION N Gall Stones N PULMONARY EMBOLISM N AUTOIMMUNE DISEASE N Immunizations Vaccine Type Date Status Note Provider Nam e and Address Organization Details Recorded Time COVID-19, mRNA, LNP-S, PF, 30 mcg/0.3 mL dose 3 completed MARY Dash, [facility] [employer] [facility] 04/14/2023 15:14:23 influenza, unspecified formulation 3 completed Arpan Hansen RMHumberto bhatia, [facility] [employer] [facility] 04/14/2023 15:19:31 Influenza, high-dose, quadrivalent, PF 0 completed Not Available [facility] 12/06/2022 10:03:33 Influenza, high-dose, trivalent, PF 8 completed Not Available [facility] 12/06/2022 10:03:33 zoster live 8 completed Not Available [facility] 12/06/2022 10:03:33 zoster live 8 completed Not Available [facility] 12/06/2022 10:03:33 Influenza, split virus, quadrivalent, preservative 7 completed Not Available [facility] 12/06/2022 10:03:33 Influenza, split virus, trivalent, preservative 1 completed Not Available [facility] 12/06/2022 10:03:33 Tdap 7 completed Not Available [facility] 12/06/2022 10:03:33 pneumococcal polysaccharide PPV23 7 completed Not Available [facility] 12/06/2022 10:03:33 Pneumococcal conjugate PCV 13 3 completed Ollie Santos MD [address] [place] [address], [id number] 07/01/2023 14:47:01 Past Encounters Encounter ID Performer Location Encounter Start Date Encounter Closed Date Diagnosis/Indication Diagnosis SNOMED-CT Code Diagnosis ICD10 Code Diagnosis Note [id number] Ollie Santos MD [facility] [facility] Internal Med [place] [address] [place] [address] 12/04/2020 00:00:00 12/04/2020 22:14:46 [id number] Ollie Santos MD [facility] [place] [facility] Internal Med [place] [address] [place] [address] 12/01/2021 00:00:00 12/19/2021 15:51:02 [id number] Ollie Santos MD [facility] Internal [facility] [place] [address] [place] [address] y , [place] [address] 12/29/2021 00:00:00 01/12/2022 22:39:32 [id number] Ollie Santos MD [facility] Internal [facility] [place] [address] [place] [address] y , [place] [address] 03/16/2022 00:00:00 03/16/2022 22:52:59 [id number] Ollie Santos MD [facility] Internal [facility] [place] [address] [place] [address] y , [place] [address] 07/20/2022 00:00:00 07/20/2022 22:37:17 [id number] Ollie Santos MD [facility] Internal [facility] [place] [address] [place] [address] , [place] [address] 11/09/2022 14:02:16 11/09/2022 15:41:22 Hypercholesterolemia 89304124 E78.00 Spinal norman nosis of lumbar region 29853690 M48.061 Essential hypertension 41273630 I10 [id number] Ollie Santos MD [facility] Internal [facility] [place] [address] [place] [address] , [place] [address] 06/02/2023 13:29:49 06/02/2023 15:22:35 Adult health examination 072768054 Z00.00 Screening for disorder 388754074 Z13.9 Renewal of prescription 599924674 Z76.0 Hyperlipidemia 90694740 E78.5 Administra tion of pneumococcal vaccine 36352624 Z23 Essential hypertension 60240268 I10 Hypercholesterolemia 136 58150 E78.00 Spinal norman nosis of lumbar region 38839700 M48.061 Health Concerns Section Related Observation LastModified by Organization Detai ls LastModified Time None Recorded Concern Status LastModified by Organization Details LastModified Time None Recorded Advance Directives Directive Y: living will Payers Encounter Date Sequence Insurance Name Policy Number Policy Diana Covered Member ID Diana Member ID Guarantor Name 11/09/2022 1 [employer] (MEDICARE REPLACEMENT/ ADVANTAGE - PPO) [id number] Mikel Nicholas Juan C [id number] Mikel Keitaayanna 06/02/2023 1 [employer] (MEDICARE REPLACEMENT/ ADVANTAGE - PPO) [id number] Mikel Keitaayanna [id number] Mikel Irizarry Notes Date Note Type Note Provider Name and Address Organization Details Recorded Time 3 text/html Hypertension no headache no dizzinessHyperlipidemia taking his medication trying to follow a low-fatSpinal stenosis seems to be doing a lot better Ollie Santos MD [address], [place], [address], [employer] 12/12/2022 16:15:11 3 text/html Hypertension no headache no dizzinessHyperlipidemia taking his medication trying to follow a low-fatSpinal stenosis seems to be doing a lot better Ollie Santos MD [address], [place], [address], [employer] 07/01/2023 14:47:33
--- OUTSIDE RECORDS SUMMARY | 2024-12-10 09:03 | XMS_ITS | Data Portability ---
[facility] Organization [facility] Address [address] [facility] [place] [address] Care Team Providers Care Conservation Agent Name Role Phone MEGHAN SANTOS Primary Care Provider Assessment Encounter Date Assessment Date Assessment LastModified by Organization Details LastModified Time 10/24/2023 10/24/2023 He is not sure of immunizations thinks he had a colonoscopy in 2021 he does not want any immunizations today nor does he want any blood he has agreed to see me back in 6 months we will continue current therapy and get his old records [email or web address] Not available 10/24/2023 23:27:58 05/07/2024 05/07/2024 we will continue current therapy blood work has been ordered healthy lifestyle care instructions advised to stay up-to-date on immunizations and screenings all questions answered he will follow up in 6 months we will obtain his colonoscopy report [email or web address] Not available 05/13/2024 21:37:34 11/05/2024 11/05/2024 I will get an MRI get speech therapy involved a Neurology consult blood work today worsening symptoms he goes to the emergency room blood pressure is right at the upper limits normal right now and we are not going to adjust it at this time did discuss that with patient he does not want to do that [email or web address] Not available 11/05/2024 22:19:28 Plan of Treatment Reminders Order Date Submit Date Provider Last Modified By Organization Details Last Modified Time Details Appointments ANY 15 2024 11:00A M Meghan Santos MD Not available Not available Not available Lab CBC w/ auto diff 2024 025 [facility], [address], [place], [address], 11/07/2024 11:11:35 CMP, serum or plasma 2024 025 [email or web address], [address], [address], [place], [address], 11/12/2024 10:09:49 lipid panel, serum 2024 025 [email or web address], [address], [address], [place], [address], 11/12/2024 10:10:06 PSA, total, serum or plasma 2023 024 [email or web address], [address], [address], [place], [address], 05/09/2024 15:59:36 lipid panel, serum 2023 024 [facility], [address], [address], [place], [address], 05/09/2024 16:00:43 CMP, serum or plasma 2023 024 [email or web address] [facility], [address], [place], [address], 05/09/2024 15:59:28 Referral speech therapy referral 2024 025 MARIO Not available 12/08/2024 04:06:[address] referral 2024 025 lucinda Armstrong MD, [address] [facility] [address], [place], [address], 11/27/2024 15:24:56 Procedures None recorded. Surgeries None recorded. Imaging MRI, brain, w/o contrast - Please call Radha to schedule apt at [phone]. 2024 [facility], [address], [place], [address], 11/13/2024 14:02:59 Medication Orders None recorded. Patient TargetsNo targets recorded. Patient Instructions Encounter Date Encounter Id Patient Instructions Last Modified By Organization Details Last Modified Time 05/07/2024 [id number] A healthy lifestyle: care instructions Not available 05/07/2024 11:52:09 11/05/2024 [id number] A healthy lifestyle: care instructions [email or web address] Not available 11/05/2024 16:31:52 Reason for Referral Referring Physician: Meghan Santos, Internal Medicine, Encounter Date: 11/05/2024 Neurologist Referral for Slu rred speech Referring Physician: Meghan Santos, Internal Medicine, Encounter Date: 11/05/2024 Results Created Date Observation Date Name Description Value Unit Range Abnormal Flag Note LastModifiedBy Organization Detail LastModifiedTime 11/07/1911/07/2024 CBC WITH DIFFE RENTI AL/PL ATELE T WBC 5.5 x10e3 /uL 3.4-10 .8 Not Available [facility] ([facility]) [address] [place], [address], 11/07/2024 11:11:35 11/07/19 25 11/07/2024 CBC WITH DIFFE RENTI AL/PL ATELE T RBC 4.94 x10e6 /uL 4.14-5 .80 Not Available [facility] ([facility]) [address] [place], [address], 11/07/2024 11:11:35 11/07/19 25 11/07/2024 CBC WITH DIFFE RENTI AL/PL ATELE T hemoglobin 15.9 g/dL 13.0-1 7.7 Not Available [facility] ([facility]) [address] [place], [address], 11/07/2024 11:11:35 11/07/19 25 11/07/2024 CBC WITH DIFFE RENTI AL/PL ATELE T hematocrit 48.2 % 37.5-5 1.0 Not Available [facility] ([facility]) [address] [place], [address], 11/07/2024 11:11:35 11/07/19 25 11/07/2024 CBC WITH DIFFE RENTI AL/PL ATELE T MCV 98 fL 79-97 above high normal Not Available [facility] ([facility]) [address] [place], [address], 11/07/2024 11:11:35 11/07/19 25 11/07/2024 CBC WITH DIFFE RENTI AL/PL ATELE T MCH 32.2 pg 26.6-3 3.0 Not Available [facility] ([facility]) [address] [place], [address], 11/07/2024 11:11:35 11/07/19 25 11/07/2024 CBC WITH DIFFE RENTI AL/PL ATELE T MCHC 33.0 g/dL 31.5-3 5.7 Not Available [facility] ([facility]) [address] [place], [address], 11/07/2024 11:11:35 11/07/19 25 11/07/2024 CBC WITH DIFFE RENTI AL/PL ATELE T RDW 12.8 % 11.6-1 5.4 Not Available [facility] ([facility]) [address] [place], [address], 11/07/2024 11:11:35 11/07/19 25 11/07/2024 CBC WITH DIFFE RENTI AL/PL ATELE T platelets 119 x10e3 /uL 150-45 0 below low normal Not Available [facility] ([facility]) [address] [place], [address], 11/07/2024 11:11:35 11/07/19 25 11/07/2024 CBC WITH DIFFE RENTI AL/PL ATELE T neutrophils 59 % notest ab. Not Available [facility] ([facility]) [address] [facility], [place], [address], 11/07/2024 11:11:35 11/07/19 25 11/07/2024 CBC WITH DIFFE RENTI AL/PL ATELE T lymphs 28 % notest ab. Not Available [facility] ([facility]) [address] [facility], [place], [address], 11/07/2024 11:11:35 11/07/19 25 11/07/2024 CBC WITH DIFFE RENTI AL/PL ATELE T monocytes 8 % notest ab. Not Available [facility] ([facility]) [address] [facility], [place], [address], 11/07/2024 11:11:35 11/07/19 25 11/07/2024 CBC WITH DIFFE RENTI AL/PL ATELE T eos 4 % notest ab. Not Available [facility] ([facility]) [address] [facility], [place], [address], 11/07/2024 11:11:35 11/07/19 25 11/07/2024 CBC WITH DIFFE RENTI AL/PL ATELE T basos 1 % notest ab. Not Available [facility] ([facility]) [address] [place], [address], 11/07/2024 11:11:35 11/07/19 25 11/07/2024 CBC WITH DIFFE RENTI AL/PL ATELE T neutrophils (absolute) 3.2 x10e3 /uL 1.4-7. 0 Not Available [facility] ([facility]) [address] [facility], [place], [address], 11/07/2024 11:11:35 11/07/19 25 11/07/2024 CBC WITH DIFFE RENTI AL/PL ATELE T lymphs (absolute) 1.5 x10e3 /uL 0.7-3. 1 Not Available [facility] ([facility]) [address] [facility], [place], [address], 11/07/2024 11:11:35 11/07/19 25 11/07/2024 CBC WITH DIFFE RENTI AL/PL ATELE T monocytes(ab solute) 0.5 x10e3 /uL 0.1-0. 9 Not Available [facility] ([facility]) [address] [facility], [place], [address], 11/07/2024 11:11:35 11/07/19 25 11/07/2024 CBC WITH DIFFE RENTI AL/PL ATELE T eos (absolute) 0.2 x10e3 /uL 0.0-0. 4 Not Available [facility] ([facility]) [address] [facility], [place], [address], 11/07/2024 11:11:35 11/07/19 25 11/07/2024 CBC WITH DIFFE RENTI AL/PL ATELE T baso (absolute) 0.0 x10e3 /uL 0.0-0. 2 Not Available [facility] ([facility]) [address] [facility], [place], [address], 11/07/2024 11:11:35 11/07/19 25 11/07/2024 CBC WITH DIFFE RENTI AL/PL ATELE T immature granulocytes 0 % notest ab. Not Available [facility] ([facility]) [address] [facility], [place], [address], 11/07/2024 11:11:35 11/07/19 25 11/07/2024 CBC WITH DIFFE RENTI AL/PL ATELE T immature grans (abs) 0.0 x10e3 /uL 0.0-0. 1 Not Available [facility] ([facility]) [address] [facility], [place], [address], 11/07/2024 11:11:35 11/14/19 25 11/13/2024 MRI, brain , w/o contr ast No observ ation record ed. [facility] [address], [place], [address], 11/16/2024 14:21:51 11/17/19 25 11/13/2024 MRI, brain , w/o contr ast No observ ation record ed. [facility] [address], [place], [address], 11/20/2024 09:37:34 11/17/19 25 11/13/2024 MRI, brain , w/o contr ast No observ ation record ed. [facility] [address], [place], [address], 11/16/2024 14:27:52 Result Notes None recorded. Problems Name Problem SNOMED Code Status Onset Date Resolution Date Notes Provider Name and Address Organization Details Recorded Time Hyperlipidemia 05756336 Active 2023 Meghan Santos MD Attn: Henrietta lazar,[address] [facility], [place], [address], [facility] 4 23:28:04 Chronic back pain 554445398 Active 2023 Meghan Santos MD Attn: Henrietta lazar,[address] [facility], [place], [address], [place] [facility] 4 23:28:05 Essential hypertension 65358730 Active 2023 Meghan Santos MD Attn: Henrietta lazar,[address] [facility], [place], [address], [place] [facility] 4 23:28:20 Spinal stenosis of lumbar region 27344420 Active 2024 Meghan Santos MD Attn: Henrietta lazar,[address] [facility], [place], [address], [place] [facility] 5 22:19:44 Problem Notes None recorded. Medical Equipment None Reported. Allergies No known drug allergies Medications Name Sig Start Date Stop Date Status Note LastModified by Organization Details LastModified Time metoprolol succinate ER 50 mg tablet,extend ed release 24 hr TAKE 1 TABLET BY MOUTH EVERY DAY 2024 active Not Available Not Available Not Avai lable simvastatin 40 mg tablet TAKE 1 TABLET BY MOUTH EVERYDAY AT BEDTIME 2024 active Not Available Not Available Not Avai lable Vitals Date Recorded Body weight Heart rate Body temperature Oxygen saturation Oxygen saturation in Arterial blood by Pulse oximetry Body mass index (BMI) Body height Systolic blood pressure Diastolic blood pressure Provider Name and Address Organization Details Last Updated DateTime 4 61640.3 6 g 89 /min 98.2 [degF] 98 % 98 % 29.2 kg/m2 182.88 cm 130 mm[Hg] 78 mm[Hg] Patito Plunkett MA [facility] 4 13:54:31 Date Recorded Body height Body mass index (BMI) Body weight Oxygen saturation Oxygen saturation in Arterial blood by Pulse oximetry Heart rate Systolic blood pressure Diastolic blood pressure Provider Name and Address Organization Details Last Updated DateTime 5 182.88 cm 28.5 kg/m2 24259.1 9 g 96 % 96 % 51 /min 140 mm[Hg] 74 mm[Hg] Cathy Camp MA [facility] 5 16:11:52 Date Recorded Body height Body mass index (BMI) Body weight Heart rate Oxygen saturation Oxygen saturation in Arterial blood by Pulse oximetry Systolic blood pressure Diastolic blood pressure Provider Name and Address Organization Details Last Updated DateTime 4 182.88 cm 29.3 kg/m2 54706.5 9 g 71 /min 98 % 98 % 128 mm[Hg] 64 mm[Hg] Yady Vergara MA [facility] 4 09:30:38 Social History Question Answer Notes LastModified by Organizat ion Details LastModified Time Tobacco Smoking Status Former Smoker Patito Plunkett MA [facility] 10/24/2023 13:51:31 Do You Have An Advance Directive? Yes Information not available 05/07/2024 Are You Blind Or Do You Have Difficulty Seeing? No Information not available 10/24/2023 In The 14 Days Before Symptom Onset, Have You Had Close Contact With A Laboratory-confir med COVID-19 While That Case Was Ill? No Information not available 05/07/2024 In The 14 Days Before Symptom Onset, Have You Had Close Contact With A Person Who Is Under Investigation For COVID-19 While That Person Was Ill? No Information not available 05/07/2024 Have You Been To An Area Known To Be High Risk For COVID-19? No Information not available 05/07/2024 Are You Deaf Or Do You Have Serious Difficulty Hearing? Yes Hearing Aids- 2 Information not available 10/24/2023 What Type Of Diet Are You Following? REGULAR Information not available 05/07/2024 Are There Any Guns Present In Your Home? No Information not available 05/07/2024 What Was The Date Of Your Most Recent Tobacco Screening? 11/05/2024 [email or web address] Information not available 11/05/2024 What Is Your Relationship Status? Information not available 10/24/2023 Do You Use Your Seat Belt Or Car Seat Routinely? Yes Information not available 10/24/2023 Do You Have Smoke And Carbon Monoxide Detectors In Your Home? Yes Information not available 05/07/2024 How Much Tobacco Do You Smoke? 0.5 PPD Information not available 10/24/2023 Do You Use Sunscreen Routinely? Yes Information not available 05/07/2024 Has Tobacco Cessation Counseling Been Provided? No Information not available 05/07/2024 How Many Years Have You Smoked Tobacco? 10 Information not available 10/24/2023 Sex: Male Functional Status Question Answer Note LastModified by Organizat ion Details LastModified Time Do you use any illicit or recreational drugs? No Information not available 05/07/2024 Do you or have you ever used any other forms of tobacco or nicotine? No Information not available 05/07/2024 What is your level of alcohol consumption? None Information not available 10/24/2023 Are you currently employed? No Information not available 05/07/2024 Are you able to care for yourself? Yes Information not available 10/24/2023 What is your exercise level? None Information not available 05/07/2024 Mental Status Question Answer Note LastModified by Organization D etails LastModified Time Do you feel stressed (tense, restless, nervous, or anxious, or unable to sleep at night)? [id number] Information not available 10/24/2023 Family History Nothing Reported. Medical History Condition Response High Cholesterol Y Immunizations Vaccine Type Date Status Note Provider Nam e and Address Organization Details Recorded Time Influenza, MDCK, quadrivalent, PF 2 completed Cathy Camp [place], [place] [facility] 11/05/2024 11:01:36 Influenza, adjuvanted, quadrivalent, PF 1 completed Cathy Camp [place], [place] [facility] 11/05/2024 11:01:36 Influenza, adjuvanted, quadrivalent, PF 3 completed Cathy Camp [place] [facility] 11/05/2024 11:01:36 COVID-19, mRNA, LNP-S, PF, 30 mcg/0.3 mL dose 1 completed Cathy Camp [place] [facility] 11/05/2024 11:01:36 COVID-19, mRNA, LNP-S, PF, 30 mcg/0.3 mL dose 1 completed Cathy Camp [place] [facility] 11/05/2024 11:01:36 COVID-19, mRNA, LNP-S, PF, 30 mcg/0.3 mL dose 1 completed Cathy Camp [place] [facility] 11/05/2024 11:01:36 COVID-19, mRNA, LNP-S, PF, 30 mcg/0.3 mL dose, oumar-sucrose 2 completed Cathy Camp [place] [facility] 11/05/2024 11:01:36 COVID-19, mRNA, LNP-S, bivalent, PF, 30 mcg/0.3 mL dose 2 completed Cathy Camp [place] [facility] 11/05/2024 11:01:36 COVID-19, mRNA, LNP-S, PF, oumar-sucrose, 30 mcg/0.3 mL 3 completed Cathy Camp, [place] [facility] 11/05/2024 11:01:36 pneumococcal polysaccharide PPV23 7 completed Cathy Camp, [place] [facility] 11/05/2024 11:01:36 Tdap 7 completed Cathy Camp, [place] [facility] 11/05/2024 11:01:36 Pneumococcal conjugate PCV 13 3 completed Cathymekhi Camp, [place] [facility] 11/05/2024 11:01:36 zoster live 8 completed Cathy Camp, [place] [facility] 11/05/2024 11:01:36 zoster live 8 completed Cathy Camp, [place] [facility] 11/05/2024 11:01:36 Influenza, high-dose, trivalent, PF 7 completed Cathy Camp, [place] [facility] 11/05/2024 11:01:36 Influenza, high-dose, trivalent, PF 8 completed Cathy Camp, [place] [facility] 11/05/2024 11:01:36 Influenza, high-dose, trivalent, PF 9 completed Cathy Camp, [place] [facility] 11/05/2024 11:01:36 Influenza, split virus, trivalent, preservative 5 completed Cathy Camp, [place] [facility] 11/05/2024 11:01:36 Influenza, split virus, quadrivalent, PF 0 completed Cathy Camp, [place] [facility] 11/05/2024 11:01:36 Past Encounters Encounter ID Performer Location Encounter Start Date Encounter Closed Date Diagnosis/Indication Diagnosis SNOMED-CT Code Diagnosis ICD10 Code Diagnosis Note [id number] Meghan Santos MD [facility] [place] [address] [place] [address] 10/24/2023 13:22:36 10/24/2023 14:44:09 Adult health examination 145172799 Z00.00 Hyperlipidemia 46377035 E78.5 Chronic back pain 407709 002 G89.29 Essential hypertension 09434461 I10 [id number] Meghan Santos MD [facility] [employer] [address] [place] [address] 05/07/2024 09:06:17 05/07/2024 10:37:08 Overweight 374656282 E66.3 Essential hypertension 19206208 I10 Screening for malignant neoplasm of prostate 508213183 Z12.5 Chronic back pain 673878 002 G89.29 Hyperlipidemia 11536524 E78.5 [id number] Meghan Santos MD [facility] [employer] [facility] [place] [address] [place] [address] 11/05/2024 15:14:04 11/05/2024 16:53:16 Overweight in adulthood with body mass index of 25 or more but less than 30 560095544 Z68.28 Overweight 253031275 E66 .3 Slurred speech 930391408 R47.81 Essential hypertension 57318520 I10 Chronic back pain 046593 002 G89.29 Hyperlipidemia 63744481 E78.5 Health Concerns Section Related Observation LastModified by Organization Detai ls LastModified Time None Recorded Concern Status LastModified by Organization Details LastModified Time None Recorded Advance Directives Directive Y: Payers Encounter Date Sequence Insurance Name Policy Number Policy Diana Covered Member ID Diana Member ID Guarantor Name 10/24/2023 1 [employer] (MEDICARE REPLACEMENT/ ADVANTAGE - PPO) [id number] Gerámn Irizarry [id number] Germán Irizarry 10/24/2023 2 [place] Germán Irizarry [id number] Germán Irizarry 05/07/2024 1 [employer] (MEDICARE REPLACEMENT/ ADVANTAGE - PPO) [id number] Germán Irizarry [id number] Germán Irizarry 05/07/2024 2 [place] Germán Irizarry [id number] Germán Irizarry 11/05/2024 1 [employer] (MEDICARE REPLACEMENT/ ADVANTAGE - PPO) [id number] Germán Irizarry [id number] Germán Irizarry 11/05/2024 2 [place] Germán Keitaayanna [id number] Germán Irizarry Notes Date Note Type Note Provider Name and Address Organization Details Recorded Time 10/24/2023 text/html 73-year-old with a history of hypertension hyperlipidemia and chronic back pain comes in for follow-up of his medical problems he has been feeling fine Meghan Santos MD Attn: [employer] [facility], [place], [address], [facility] 11/16/2023 20:50:16 05/07/2024 text/html tension no heada jazmín or dizziness. His back pain stable dyslipidemia taking his simvastatin his diet is good Meghan Santos MD Attn: [address] [facility], [place], [address], [facility] 05/13/2024 21:37:54 11/05/2024 text/html He comes in his today also was in attendance and they noticed some slurred speech and some facial drooping on the right side for about 3 weeks no headache or blurred vision he is taking his medicine for his blood pressure and for his cholesterol LORENA Milton, [facility] 11/06/2024 12:27:32
--- OUTSIDE RECORDS SUMMARY | 2024-12-10 09:03 | XMS_ITS | CONTINUITY OF CARE DOCUMENT ---
Author Name mukesh mayorga Address Unknown Organization [facility] Address [address] [place] [address] [address] [place] [address] Phone [phone] Care Team Providers Care Road Grader Name Role Phone mukesh mayorga Unavailable Unavailable
== END 2024-12-10 08:40 | disposition home or self-care (01) ==
PROVIDERS: PCP Internal Medicine; Visit Provider Internal Medicine
DX: R47.81 Slurred speech (principal)
CPT/HCPCS: 70552; A9577